=== PATIENT | female | born 1950 | race Two or more races ===

== ENCOUNTER 2018-06-03 18:36 | Emergency (ER) | payer OTHER ==
[~2018-06-03] VITALS: Ht 167.6 cm; Wt 68.0 kg
[2018-06-03 18:47] VITALS: BP 140/78
== END 2018-06-03 23:02 | disposition left against medical advice (07) ==
LOC: ER 18:48
DX: E16.2 Hypoglycemia, unspecified (principal); Z53.21 Procedure and treatment not carried out due to patient leaving prior to being seen by health care provider